=== PATIENT | male | born 1965 | race Caucasian/White ===

== ENCOUNTER 2017-02-03 07:13 | Outpatient (CLI) | payer OTHER ==
--- NOTE | 2017-02-04 13:08 | Ultrasound Report ---
RIGHT UPPER QUADRANT ABDOMINAL ULTRASOUND: 02/03/2017 COMPARISON: None. INDICATION: Elevated transaminases. TECHNIQUE: Sonographic evaluation of the right upper quadrant was performed. FINDINGS: The liver is moderately and diffusely echogenic, consistent with hepatic steatosis. The liver is normal in size and contour without masses. There is no biliary dilation. The gallbladder is unremarkable without stones, wall thickening, or surrounding fluid. Common duct measurement 5 mm. The right kidney is grossly unremarkable without hydronephrosis. Portal venous flow is directed toward the liver. The pancreas is not well evaluated. IMPRESSION: MODERATE HEPATIC STEATOSIS. MTDD
== END 2017-02-03 07:14 | disposition home or self-care (01) ==
LOC: DI 07:13
PROVIDERS: ATTEND Internal Medicine
DX: K76.0 Fatty (change of) liver, not elsewhere classified (principal)
CPT/HCPCS: 76705

== ENCOUNTER 2018-12-26 05:46 | Emergency (ER) | payer OTHER ==
--- NOTE | 2018-12-26 05:55 | ED Physician Documentation ---
PD HPI MALE - Stated complaint Stated Complaint: CHILLS, BACK PAIN, MALE - Chief complaint Chief Complaint: Abd Pain - History obtained from History obtained from: Patient - History of Present Illness Timing - onset: How many days ago (1-2) Timing - duration: Days Timing - details: Gradual onset Associated symptoms: Dysuria, Urinary frequency, Other (able to urinate but sensation of increasing strain to void bladder accompanied by increasing sensation of incomplete voiding) Similar symptoms before: No diagnosis Recently seen: Not recently seen - Additional information Additional information: c/o 1-2 days of chills, sweats (has not taken temperature at home), suprapubic pain and pressure that gradually worsened to involve across bilateral pelvis and then bilateral flanks and lower back Review of Systems Constitutional: reports: Chills, Sweats Cardiac: reports: Reviewed and negative Respiratory: reports: Reviewed and negative GI: reports: Abdominal Pain, Nausea. denies: Vomiting, Constipation, Diarrhea : reports: Dysuria, Frequency. denies: Hematuria, Discharge Musculoskeletal: reports: Reviewed and negative Neurologic: reports: Reviewed and negative PD PAST MEDICAL HISTORY - Past Medical History Past Medical History: No - Past Surgical History Past Surgical History: No - Present Medications Home Medications: Ambulatory Orders Medication Instructions Recorded Confirmed Ciprofloxacin HCl [Cipro] 500 mg PO BID #20 tablet 12/26/18 Loratadine [Claritin] 1 tab PO DAILY 12/26/18 12/26/18 - Allergies Allergies/Adverse Reactions: Allergies Allergy/AdvReac Type Severity Reaction Status Date / Time Iodinated Contrast Media Allergy Hives Verified 12/26/18 05:55 - Living Situation Living Situation: reports: With spouse/s.o. Living Arrangement: reports: At home - Social History Does the pt smoke?: No PD ED PE NORMAL - Vitals Vital signs reviewed: Yes - General General: Alert and oriented X 3, Well developed/nourished, Other (Appears uncomfortable due to pain as well as generalized ill appearance without toxic general appearance.) - HEENT HEENT: PERRL, EOMI, Moist mucous membranes - Neck Neck: Supple, no meningeal sign - Cardiac Cardiac: No murmur - Respiratory Respiratory: No respiratory distress, Clear bilaterally - Abdomen Abdomen: Normal bowel sounds, Soft, Non tender, Non distended - Back Back: No CVA TTP - Derm Derm: Normal color, Warm and dry, No rash - Extremities Extremities: No edema PD ED PE EXPANDED - Cardiac Cardiac: Tachy, Regular Rhythm Results - Vitals Vitals: Oxygen O2 Source Room air - Labs Labs: Microbiology 12/26/18 05:45 Urine Culture - Preliminary Urine,Clean Catch Laboratory Tests 12/26/18 12/26/18 12/26/18 05:45 06:03 06:03 WBC 2.8 L RBC 5.16 Hgb 16.1 Hct 47.4 MCV 91.9 MCH 31.2 H MCHC 34.0 RDW 13.4 Plt Count 165 MPV 8.8 Neut # (Auto) Not Reportable Lymph # (Auto) Not Reportable Brantley # (Auto) Not Reportable Eos # (Auto) Not Reportable Baso # (Auto) Not Reportable Absolute Nucleated RBC Not Reportable Total Counted 100 Band Neuts % (Manual) 0 Abnorm Lymph % (Manual) 0 Nucleated RBC % Not Reportable Neutrophils # (Manual) 1.8 Lymphocytes # (Manual) 0.9 L Monocytes # (Manual) 0.0 Eosinophils # (Manual) 0.1 Basophils # (Manual) 0.0 Differential Comment MANUAL DIFFERENTIAL WBC Morphology NORMAL APPEARANCE Platelet Estimate NORMAL (130-450,000) Platelet Morphology NORMAL APPEARANCE RBC Morph Micro Appear NORMAL APPEARANCE Sodium 142 Potassium 4.0 Chloride 105 Carbon Dioxide 27 Anion Gap 10.0 BUN 12 Creatinine 1.2 Estimated GFR (MDRD) 64 L Glucose 117 H Lactic Acid Calcium 9.7 Total Bilirubin 1.0 AST 39 ALT 91 H Alkaline Phosphatase 54 Total Protein 8.2 Albumin 4.7 Globulin 3.5 Albumin/Globulin Ratio 1.3 Lipase 26 Urine Color YELLOW Urine Clarity CLEAR Urine pH 6.0 Ur Specific Por[place] 1.015 Urine Protein NEGATIVE Urine Glucose (UA) NEGATIVE Urine Ketones NEGATIVE Urine Occult Blood SMALL H Urine Nitrite POSITIVE H Urine Bilirubin NEGATIVE Urine Urobilinogen 0.2 (NORMAL) Ur Leukocyte Esterase SMALL H Urine RBC 0-5 Urine WBC 6-10 H Ur Squamous Epith Cells RARE Squamous Urine Bacteria Moderate H Ur Microscopic Review INDICATED Urine Culture Comments INDICATED 12/26/18 07:56 WBC RBC Hgb Hct MCV MCH MCHC RDW Plt Count MPV Neut # (Auto) Lymph # (Auto) Brantley # (Auto) Eos # (Auto) Baso # (Auto) Absolute Nucleated RBC Total Counted Band Neuts % (Manual) Abnorm Lymph % (Manual) Nucleated RBC % Neutrophils # (Manual) Lymphocytes # (Manual) Monocytes # (Manual) Eosinophils # (Manual) Basophils # (Manual) Differential Comment WBC Morphology Platelet Estimate Platelet Morphology RBC Morph Micro Appear Sodium Potassium Chloride Carbon Dioxide Anion Gap BUN Creatinine Estimated GFR (MDRD) Glucose Lactic Acid 2.4 H Calcium Total Bilirubin AST ALT Alkaline Phosphatase Total Protein Albumin Globulin Albumin/Globulin Ratio Lipase Urine Color Urine Clarity Urine pH Ur Specific Porum Urine Protein Urine Glucose (UA) Urine Ketones Urine Occult Blood Urine Nitrite Urine Bilirubin Urine Urobilinogen Ur Leukocyte Esterase Urine RBC Urine WBC Ur Squamous Epith Cells Urine Bacteria Ur Microscopic Review Urine Culture Comments - Rads (name of study) A/P CT Radiology: Prelim report reviewed, See rad report PD MEDICAL DECISION MAKING - ED course Complexity details: reviewed old records, reviewed results, re-evaluated patient, considered differential, d/w patient, d/w family ED course: after IV fluids and toradol, patient reports feeling significant improvement. d/w patient test results, including abnormal WBC, CT abnormalities (although none if the CT findings explain symptoms), and UA result. suspect prostatitis and will tx with cipro. Departure - Departure Disposition: 01 Home, Self Care Clinical Impression: Prostatitis Condition: Good Instructions: ED Prostatitis Follow-Up: Romeo Bledsoe MD [Primary Care Provider] - Prescriptions: Ciprofloxacin HCl [Cipro] 500 mg PO BID #20 tablet Discharge Date/Time: 12/26/18 08:54
[2018-12-26 06:04] LABS: BILIRUBIN,URINE NEGATIVE (NEGATIVE); GLUCOSE, URINE (UA) NEGATIVE (NEGATIVE); KETONES,URINE (UA) NEGATIVE (NEGATIVE); LEUKOCYTE ESTERASE, URINE SMALL (NEGATIVE); NITRITE,URINE POSITIVE (NEGATIVE); OCCULT BLOOD,URINE SMALL (NEGATIVE); PROTEIN,URINE NEGATIVE (NEGATIVE); UROBILINOGEN,URINE 0.2 (NORMAL) E.U./dL (NORMAL)
[2018-12-26] MEDS ORDERED: SODIUM CHLORIDE 0.9% 1,000 ML IV ONE (06:13)
[2018-12-26] MEDS ORDERED: KETOROLAC 30 MG/ML VIAL IVP STA (06:14)
[2018-12-26 06:16] LABS: BASOPHILS % (AUTO) 0.4 %; HGB - HEMOGLOBIN 16.1 g/dL (14.0-18.0); LYMPHOCYTES % (AUTO) 28.9 %; MEAN CORPUSCULAR HEMOGLOBIN 31.2 pg (27.0-31.0); MEAN CORPUSCULAR VOLUME 91.9 fL (80.0-94.0); MEAN PLATELET VOLUME 8.8 fL (7.4-11.4); MONOCYTES % (AUTO) 0.7 %; NEUTROPHILS % (AUTO) 69.3 %; PLT - PLATELET COUNT 165 10^3/uL (130-450); RED BLOOD COUNT 5.16 10^6/uL (4.70-6.10); RED CELL DISTRIBUTION WIDTH 13.4 % (12.0-15.0); WHITE BLOOD COUNT 2.8 x10^3/uL (4.8-10.8)
[2018-12-26 06:16] LABS: CLARITY,URINE CLEAR (CLEAR)
[2018-12-26 06:17] LABS: BACTERIA,URINE Moderate /HPF (None Seen); RBC,URINE 0-5 /HPF (0-5); SQUAMOUS EPITHELIAL CELL,UR RARE Squamous (<= Few)
[2018-12-26 06:21] LABS: ABNORMAL LYMPHS % (MANUAL) 0 %; BAND NEUTROPHILS % (MANUAL) 0 %
[2018-12-26 06:25] LABS: ALBUMIN 4.7 g/dL (3.2-5.5); ALBUMIN/GLOBULIN RATIO 1.3 (1.0-2.2); CALCIUM 9.7 mg/dL (8.5-10.3); CREATININE 1.2 mg/dL (0.6-1.2); TOTAL PROTEIN 8.2 g/dL (6.7-8.2)
[2018-12-26 06:47] LABS: BASOPHILS % (MANUAL) 1 %; EOSINOPHILS # (MANUAL) 0.1 10^3/uL (0-0.7); LYMPHOCYTES # (MANUAL) 0.9 10^3/uL (1.5-3.5); LYMPHOCYTES % (MANUAL) 33 %; RBC MORPHOLOGY (MULTIPLE) NORMAL APPEARANCE (NORMAL)
[2018-12-26 06:48] LABS: PLATELET ESTIMATE, MANUAL NORMAL (130-450,000) (NORMAL); PLATELET MORPHOLOGY NORMAL APPEARANCE (NORMAL)
[2018-12-26 06:49] LABS: DIFFERENTIAL COMMENT MANUAL DIFFERENTIAL
--- NOTE | 2018-12-26 07:04 | CT Report ---
Reason: left flank pain Procedure Date: 12/26/2018 Accession Number: [id number] / [id number] Procedure: CT - Abdomen/Pelvis WO CPT Code: FULL RESULT: EXAM: CT ABDOMEN AND PELVIS (CT KUB) EXAM DATE: 12/26/2018 06:45 AM. CLINICAL HISTORY: Left-sided flank pain COMPARISONS: None. TECHNIQUE: Routine axial helical CT imaging was performed through the abdomen and pelvis without IV contrast. Reconstructions: Coronal and sagittal. In accordance with CT protocol optimization, one or more of the following dose reduction techniques were utilized for this exam: automated exposure control, adjustment of mA and/or KV based on patient size, or use of iterative reconstructive technique. FINDINGS: Right Kidney/Ureter: No stones. No hydronephrosis or hydroureter. No definite renal mass within the confines of a non-contrast exam. Left Kidney/Ureter: There are 2 tiny stones within the left mid upper kidney, measuring less than 3 mm in maximal diameter. No hydronephrosis or hydroureter. No definite renal mass within the confines of a non-contrast exam. Abdominal Solid Organs: Extreme hepatic steatosis. Moderate to severe hepatomegaly. Otherwise, abdominal parenchymal organs are without significant abnormality within the confines of a noncontrast exam. Bowel: No evidence of bowel obstruction. Appendix: Normal. Lymph Nodes: No definite pathologic lymphadenopathy. Fluid: No significant ascites. Vasculature: Normal caliber aorta. Pelvis: There is a punctate calcification projecting along the base of the penis, possibly within the penile urethra (image 173 series 3). Bones: No definite suspicious bony lesions demonstrated. Moderate multilevel degenerative change. Lower Chest: No significant lung base consolidation or effusion. IMPRESSION: 1. No significant left-sided hydroureteronephrosis noted. 2. There is a punctate calcification projecting along the base of the penis, possibly a stone within the penile urethra versus dystrophic calcification. 3. There are 2 intrarenal stones within the left kidney measuring less than 3 mm. No right-sided kidney stone. RADIA
[2018-12-26] MEDS ORDERED: ACETAMINOPHEN 325 MG TABLET PO STA (07:43)
[2018-12-26] MEDS ORDERED: CIPROFLOXACIN 250 MG TABLET PO STA (07:50)
[2018-12-26 08:21] VITALS: BP 123/83
== END 2018-12-26 08:54 | disposition home or self-care (01) ==
LOC: ED 05:46
DX: N41.9 Inflammatory disease of prostate, unspecified (principal)
CPT/HCPCS: 36415; 51798; 74176; 80053; 81001; 83605; 83690; 85025; 87086; 96361; 96374; 99284; A9270; 81003